=== PATIENT | female | born 1970 | race Caucasian/White ===

== ENCOUNTER 2018-05-30 05:20 | Inpatient (IN) ==
--- NOTE | 2018-05-29 23:15 | MH ---
cc: Gage Deal MD,Tamara Forrester MD DATE OF ADMISSION: 05/30/2018 ADMITTING DIAGNOSIS: Bilateral complex adnexal masses with pelvic pain. HISTORY OF PRESENT ILLNESS: The patient is a 47-year-old white female, para 2-0-1-2, who presented for evaluation on 05/03/2018 reporting some lower abdominal pain midline, described as going from the pubis about care home to the umbilicus for about 3 months. She has some low back pain and some urinary urgency. Her initial laboratory studies included normal CBC and urinalysis. A pelvic ultrasound was obtained on 05/04/2018, and showed uterus that measured 10.8 cm. The right ovary is a complex mass measuring 6.8 cm with a hypoechoic lesion measuring 3.7 cm. Left ovary was lobulated, 3.6 cm, mild free fluid. She had a CA-125 ordered on 05/05/2018 that returned at 210. She was advised to have an abdominal pelvic CT mass, which showed some nonspecific lesions liver lesions. The remainder of the abdomen was benign. Uterus is displaced anteriorly by complex masses. There was a 5.5 cm right adnexal cyst and a 3.9 cm left adnexal cyst, with some solid tissue posterior uterus along the posterior enlargement cystic lesions. The rectum was displaced. There is no evidence of lymphadenopathy. This was then followed by MRI of the abdomen and pelvis, which again confirmed the mass of the right side appeared to be a total of 11.6 cm with small quantity of free fluid. The left ovary was a mass about 4.5 cm. An MRI of the liver on 05/23/2018 was again nonspecific suggesting fatty liver changes. She is now admitted for surgical evaluation. 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 MEDICATIONS: Oral contraceptive pills, antihypertensives, and cholesterol lowering medications. ALLERGIES: PENICILLIN. TRANSFUSIONS: None. OBSTETRIC HISTORY: Two term sections. SOCIAL HISTORY: She is . She is employed. Alcohol, tobacco and drugs are none. FAMILY HISTORY: Noncontributory. PHYSICAL EXAMINATION: GENERAL: This is a well-nourished, well-developed white female. VITAL SIGNS: Stable. HEENT: Normal. CHEST: Clear. HEART: Regular rate. BREASTS: Symmetrical. ABDOMEN: Benign. Bowel sounds normal. EXTREMITIES: Normal. PELVIC: Vagina normal. Cervix normal. Both adnexa are cystic. DIAGNOSTIC DATA: Preop chest x-ray is negative. EKG is normal and her repeat CA-125 is 255. PLAN: She has had a preoperative bowel prep. Dr. Dasia Degroot has been consulted to assist in her surgery and her care in the event of a malignancy. She is aware she may require in addition to a ANA/BSO, omentectomy, appendectomy, lymph node biopsy, etc. The risks and benefits and complications explained and accepted. MD VINNY Owens/vincenzo , 09:56 PM , 10:06 PM
[2018-05-30] MEDS ORDERED: Chlorhexidine Gluconate 2% 1 Pack (2 Cloths) TOPICAL ONE (05:55)
[2018-05-30] MEDS ORDERED: Metoprolol Tartrate 25 MG Tablet PO ONE (05:55)
[2018-05-30] MEDS ORDERED: Sodium Chlor 0.9% Inj 500 ML IV.SIG SCH (06:00)
[2018-05-30] MEDS ORDERED: Clindamycin 900 mg/NS Premix 900 MG/50 ML PIGGYBACK IV.SIG ONE (06:00)
[2018-05-30] MEDS ORDERED: Phenylephrine/NS 1000 MCG/10ML Syringe IV.PUSH ONE (07:26)
[2018-05-30] MEDS ORDERED: Normosol-R pH 7.4 Inj 1,000 ML IV.CONT ONE (07:26)
[2018-05-30] MEDS ORDERED: Lidocaine PF 1% Inj 5 ML Syringe OTHER ONE (07:26)
[2018-05-30] MEDS ORDERED: Glycopyrrolate Inj 1 MG/5 ML Syringe IV.PUSH ONE (07:26)
[2018-05-30] MEDS ORDERED: Ketorolac Inj 30 MG/ML (IVP) Vial IM ONE (07:26)
[2018-05-30] MEDS ORDERED: Neostigmine Inj 5 MG/5 ML Syringe IV.PUSH ONE (07:26)
[2018-05-30] MEDS ORDERED: Ketorolac Inj 30 MG/ML (IVP) Vial IV.PUSH ONE (07:26)
[2018-05-30] MEDS ORDERED: Zolpidem Tartrate 5 MG Tablet PO PRN ×2 (10:06→12:05)
[2018-05-30] MEDS ORDERED: Naloxone Inj 0.4 MG/ML Vial IV.PUSH PRN (10:10)
[2018-05-30] MEDS ORDERED: KCL 20 mEq/D5W/NaCl 0.45% Inj 1,000 ML ONE (10:24)
[2018-05-30] MEDS ORDERED: Morphine Inj 30 MG/30 ML PCA.VIAL PCA ONE (10:24)
[2018-05-30] MEDS: KCL 20 mEq/D5W/NaCl 0.45% Inj 1,000 ML IV.CONT SCH ×2 (10:35→19:02)
[2018-05-30] MEDS ORDERED: *morphine SULFATE 4 MG/ML PERIprocedure ONLY ONE ×2 (10:43→11:22)
[2018-05-30] MEDS ORDERED: *Promethazine Inj 25 MG/ML Vial PERIprocedural use ONLY ONE (11:01)
--- NOTE | 2018-05-30 11:18 | MP ---
cc: Tamara Degroot MD, John A MD DATE OF OPERATION: 05/30/2018 DATE OF PROCEDURE: 05/30/2018 PROCEDURE PERFORMED: Exploratory laparotomy, total abdominal hysterectomy, bilateral salpingo-oophorectomy, resection of pelvic tumor, omentectomy. SURGEON: Tamara Degroot MD. CO-SURGEON: Gage Deal MD ANESTHESIA: General endotracheal anesthesia. ESTIMATED BLOOD LOSS: 700 mL IV FLUIDS: 3700 mL URINE OUTPUT: 100 mL HISTORY: This is a 47-year-old female who has been under the care of Dr. Gage Deal. Recently found to have bilateral complex adnexal masses and CA-125 elevated greater than 200. She was counseled regarding these findings and concerns, and was in favor of surgical evaluation and management. Dr. Deal had made me aware of this individual and her findings. I have had the opportunity to review her imaging and other pertinent history. She was scheduled for Dr. Deal this morning and upon exploration of the peritoneal cavity, he consulted and then requested that I join him to work with him in the surgical management based on the findings. FINDINGS: Bilateral adnexal masses; the right ovary was the largest. There was what appeared to be tumor with disruption of the capsule and tumor growing through the capsule. Some of this was sent for frozen section analysis. 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 The possibility of invasive disease could not yet be excluded. In addition to the large right ovarian mass, the left ovary was also enlarged to approximately 4 cm. There was some diffuse edema and adhesions suggestive of response to the tumor. The uterus was prominent, symmetrically enlarged, probably due to leiomyomas. There was approximately 7 cm - 8 cm mass of tumor in the posterior cul-de-sac. This was fairly loosely adherent to the adjacent tissues and it is probable that this tumor in the cul-de-sac represents tumor that had extruded through the capsule of the right ovary and deposited into the posterior cul-de-sac. There were no appreciably enlarged retroperitoneal pelvic or periaortic lymph nodes. There were no peritoneal implants beyond the pelvis. The small bowel was inspected from the ileocecal valve to the ligament of Treitz. There were no peritoneal implants in the bowel or mesentery; the appendix grossly appeared normal. The liver and diaphragm edges were smooth. The omentum grossly appeared normal. At the conclusion of the case, there was essentially no grossly visible or palpable tumor that remained as all tumor was confined to the pelvis and all affected tumor and organs were removed surgically. Given that there was already disease beyond the ovary to the peritoneum, additional peritoneal biopsies were not obtained from the normal peritoneal surfaces, but the infracolic omentum was removed for permanent histopathologic analysis. PROCEDURE: I was called to the operating room. She had already been explored via midline vertical incision under general endotracheal anesthesia by Dr. Gage Deal. A self-retaining abdominal wall retractor and protector had been placed; some lap pads had been placed to assist in the surgical exposure and the tissue from the right ovary was sent for frozen section analysis with findings as described above. I scrubbed in with Dr. Deal and we essentially completed all steps together acting as co-surgeons. He had completed removal of the right tube and ovary. Retroperitoneal dissection was carried out on the left side. The round ligament had been transected. Retroperitoneal dissection was carried out above the level of the pelvic brim. Dissection allowed visual and palpable inspection of the ureter on the left and the infundibulopelvic ligament was isolated. The intervening peritoneum was opened and the infundibulopelvic ligament was isolated, doubly clamped, cut, and suture ligated. Attachments between the left ovary and pelvic sidewall were taken down with cautery and sharp dissection until the ovary could be mobilized, attached only by the uteroovarian ligament. The posterior peritoneum was dissected off the lower uterine segment and cervix and the vesicouterine peritoneum was dissected off the lower uterine segment and cervix. The left uterine vessels were skeletonized. The left uterine vessels were clamped, cut, and suture ligated as were the cardinal, paracervical and uterosacral ligaments. Dr. Deal performed similar steps on the right side to secure the blood supply on the right side and to clamp, cut, and tie the ligamentous attachments along the right side of the uterus and cervix. Curved Lindo clamps were placed below the cervix at the lateral vaginal angles. Sharp dissection was used to separate the cervix from the vagina. [id number] interrupted 0-Vicryl sutures were used to secure the angles of the vaginal cuff and to reapproximate the cuff and render it hemostatic. Inspection of the posterior cul-de-sac showed a large volume of tumor in the cul-de-sac, which was removed with fairly straightforward blunt dissection from the cul-de-sac without much in the way of any adhesive attachments except for minimal filmy adhesions, given the impression that this may have been tumor that had erupted through the capsule of the right ovary and deposited below it into the cul-de-sac. The pelvis was thoroughly irrigated. Small bleeders rendered hemostatic with a 3-0 Vicryl suture bipolar cautery. All sites were hemostatic. The ureters were inspected. There was good peristalsis of ureters bilaterally. Pelvic lymph nodes were palpably inspected with no abnormal findings. Surgicel was placed across the vaginal cuff and the lateral vaginal angles. The lap pads were removed from the peritoneal cavity. The bowel and abdominal contents were inspected with normal findings as described above. Given that the omentum would be the most likely site of metastatic disease in the abdomen, decision was made in favor of omentectomy. Nonvascular attachments were taken down from the transverse colon starting near the hepatic flexure. Vascular attachments were isolated, clamped, cut, and suture ligated with 2-0 Vicryl suture. This dissection was continued along the transverse colon towards the splenic flexure in a similar fashion until the infracolic omentum had been removed. Site of transection of the omentum was inspected and noted to be hemostatic. Visual and palpable inspection revealed no remaining foreign objects in the peritoneal cavity other than the intentionally placed Surgicel. Cast counts were correct and it was felt that all reasonable surgical objectives had been completed. Attention was directed toward closing. The abdominal wall was closed with 0-looped PDS in a modified running Smead-Hoover fashion starting at the mid starting at the apices and meeting in the midpoint where the sutures were tied. Subcutaneous tissue was irrigated. Maria's fascia reapproximated with a 0-Vicryl suture and then 3-0 subcuticular closure, followed by Steri-Strips and dry sterile dressing. She was pending reversal of anesthesia when I left the operating room proceeded to the postanesthesia care unit. Dr. Deal was still present to finish up and get the wound dressed and to help ensure a safe transfer to the postanesthesia care unit and to speak with the family members who were waiting. MD TOMMY Dennis/franck Magana: 05/30/2018, 10:13 AM , 10:28 AM
[2018-05-30] MEDS ORDERED: Ketorolac Inj 30 MG/ML (IVP) Vial IV.PUSH SCH (11:45)
[2018-05-30 11:54] LABS: Hematocrit 39.4 % (35.0-46.0); Hemoglobin 13.2 gm/dL (11.6-15.3); Mean Corpuscular HGB Conc 33.4 % (32.0-36.0); Mean Corpuscular Hemoglobin 31.8 pg (27.0-34.0); Mean Corpuscular Volume 95.3 fL (80.0-100.0); Mean Platelet Volume 8.4 fL (7.0-11.0); Platelet Count 100 th/mm3 (150-450); Red Blood Count 4.13 mil/mm3 (4.00-5.30); Red Cell Distribution Width 13.1 % (11.6-17.2); White Blood Count 15.6 th/mm3 (4.0-11.0)
--- NOTE | 2018-05-30 13:25 | MP ---
cc: Gage Deal MD DATE OF OPERATION: 05/30/2018 PREOPERATIVE DIAGNOSIS: Bilateral complex ovarian masses. 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 PROCEDURES: Exploratory laparotomy, total abdominal hysterectomy/bilateral salpingo-oophorectomy, omentectomy. COSURGEON: Gage Deal MD; and Tamara Degroot MD. ANESTHESIA: General, ET. ESTIMATED BLOOD LOSS: 700 mL. FLUIDS: 3.7 crystalloid. SERVER SUPPORT TECHNICIAN: Kim OBJECTIVE FINDINGS: Following induction of adequate general endotracheal anesthesia, the patient was prepped and draped supine on the operating table in dorsal lithotomy position in usual sterile fashion with the bladder being drained via Mcneill catheterization. He has opened through a midline incision from just beneath the umbilicus to just above the symphysis pubis with a knife cutting down to the fascia. The fascia opened in the midline. Peritoneum opened sharply. There was a small quantity of clear ascitic fluid. Peritoneal washings were obtained for permanent study. The upper abdomen, omentum and liver all palpated normal. The elastic protractor was placed. The bowel was packed from the operative field and large Tamara clamps were placed on each uterine cornua for traction. There were some fine adhesions of the sigmoid to anterior fundus with finger dissection and the Bovie. The right ovary was enlarged about 7 cm with some excrescences through the capsule. This easily lifted out of the pelvis. The right round ligament was suture ligated and cut. The right ovarian pedicle was isolated, triply clamped with Mary's, cut, ligated x2 with 0 Vicryl and the right ovary sent for frozen section. The bladder flap was taken down on the right side. Uterine vessels skeletonized on the right side triply clamped with Mary's, cut, and ligated with [address] Degroot then scrubbed in and I had ligated the left round ligament. He did the dissection of the left ovarian pedicle, identified the ureter, doubly clamped, the uteroovarian pedicle. This was cut and tied x2 with 0 Vicryl, and he proceeded to take down the bladder flap from his side and skeletonize the vessels. The uterine artery was taken on the left side with a curved Mary, cut, and ligated x2 with 0 Vicryl and then using a [place] and Tejas clamps, straight type, the cardinal uterosacral was taken clamping, cutting, ligating with 0 Vicryl. 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 The corners of the vaginal cuff were taken with a curved Lindo clamp, cut, and ligated with 0 Vicryl and then the Bovie was used to amputate the cervix from the vaginal cuff. The remainder of the cuff was closed with the [address] Degroot then finger dissected off some tumor from the posterior cul-de-sac which came out clear. He then checked the right ureter which was intact and established hemostasis and placed Surgicel over all of the denuded surfaces. The laps were then removed. Counts were correct. Dr. Degroot performed omentectomy. Irrigation performed. No bleeding was evident. All laps and retractors were removed. Counts were correct and Dr. Degroot closed the anterior abdominal fascia and peritoneum with a Smead-Hoover closure #1 PDS. He then scrubbed out. I irrigated subcutaneous, closed subcutaneous with a running 3-0 Vicryl and the skin with a running subcuticular 3-0 Monocryl. Dermabond applied. All counts were correct, and the patient was awakened and taken to recovery room in good condition after receiving TAP block. MD VINNY Owens/kwesi , 10:17 AM , 10:28 AM EROS
[2018-05-30] MEDS: Morphine Inj 30 MG/30 ML PCA.VIAL PCA PRN ×2 (14:59→16:50)
[2018-05-30] MEDS: Pantoprazole Sodium 20 MG DR Tablet PO SCH (15:44)
[2018-05-30] MEDS: Ketorolac Inj 30 MG/ML (IVP) Vial IV.PUSH SCH ×2 (16:16→23:34)
[2018-05-30] MEDS ORDERED: fentaNYL Citrate Inj 100 MCG/2 ML Ampul ONE ×2 (19:39→19:41)
[2018-05-31] MEDS: KCL 20 mEq/D5W/NaCl 0.45% Inj 1,000 ML IV.CONT SCH ×3 (03:26→20:59)
[2018-05-31] MEDS: Ketorolac Inj 30 MG/ML (IVP) Vial IV.PUSH SCH ×3 (04:07→17:16)
[2018-05-31 05:57] LABS: Baso % (Auto) 0.2 % (0.0-2.0); Eos % (Auto) 0.3 % (0.0-4.0); Hemoglobin 11.7 gm/dL (11.6-15.3); Lymph # (Auto) 1.3 th/mm3 (1.0-4.8); Lymph % (Auto) 12.1 % (9.0-44.0); Mean Corpuscular HGB Conc 34.5 % (32.0-36.0); Mean Corpuscular Hemoglobin 31.9 pg (27.0-34.0); Mean Corpuscular Volume 92.6 fL (80.0-100.0); Mean Platelet Volume 8.2 fL (7.0-11.0); Mono # (Auto) 0.7 th/mm3 (0.0-0.9); Mono % (Auto) 6.9 % (0.0-8.0); Neut # (Auto) 8.6 th/mm3 (1.8-7.7); Neut % (Auto) 80.5 % (16.0-70.0); Platelet Count 224 th/mm3 (150-450); Red Blood Count 3.67 mil/mm3 (4.00-5.30); White Blood Count 10.7 th/mm3 (4.0-11.0)
[2018-05-31 06:34] LABS: Anion Gap 7 meq/L (5-15); Blood Urea Nitrogen 5 mg/dL (7-18); Calcium 7.1 mg/dL (8.5-10.1); Carbon Dioxide 25.4 meq/L (21.0-32.0); Chloride 103 meq/L (98-107); Glomerular Filtration Rate Greater Than 89 mL/min (>89); Glucose,Random 132 mg/dL (74-106); Potassium 3.7 meq/L (3.5-5.1); Sodium 135 meq/L (136-145)
[2018-05-31 06:51] LABS: Calcium-Albumin Corrected 8.2 mg/dL (8.5-10.1); Total Protein 5.1 g/dL (6.4-8.2)
[2018-05-31] MEDS: Pantoprazole Sodium 20 MG DR Tablet PO SCH (08:05)
--- NOTE | 2018-05-31 09:14 | MB ---
cc: Tamara Degroot MD,Gage Day MD DATE: 05/31/2018 HISTORY OF PRESENT ILLNESS: I met with Lulú Cole, introduced myself, made her aware that I worked with Dr. Gage Deal yesterday on her surgery at his request. She was aware of that possibility preoperatively. I explained the findings and the steps taken at the time of surgery as well as the preliminary pathology. Frozen section analysis from the right ovary showed it to be at least a serous borderline tumor. The possibility of invasive ovarian cancer remains and will not be clarified until final histopathologic analysis is completed. I explained the difference both histologically and clinically between a serous borderline tumor (ovarian tumor of borderline malignant potential) versus invasive ovarian cancer. I explained that one is treated with surgery and the other require surgery and often chemotherapy and both require periodic close followup. I explained that all grossly visible or palpable disease was removed as it was confined to the pelvis and the ovaries, uterus, cervix, and cul-de-sac tumor were resected. Additional specimens were sent for microscopic analysis. At some point after hospital discharge, I would like to see her back in our office to ensure we have the opportunity to have a more detailed discussion regarding her final pathology and to make treatment and/or recommendation followups based on those findings. With respect to surgery, she is doing well, reports discomfort and being tired consistent with surgery yesterday; but otherwise doing reasonably well. Ins and outs 5950/1500. Labs show an H and H this morning is 11.7 and 34, platelets 224, white count 10.7. Electrolytes: Potassium 3.7, BUN and creatinine 5 and 0.6. PHYSICAL EXAMINATION: VITAL SIGNS: She is afebrile, pulse 77-96, respirations 16-18, blood pressure 81-98/43-60, O2 saturations greater than or equal to 94% while awake. GENERAL: Alert and oriented x 3. LUNGS: Clear with basilar rales. CARDIOVASCULAR: Regular rate and rhythm. ABDOMEN: Soft. Incision dressing clean and dry. GYNECOLOGIC: No reported bleeding. EXTREMITIES: Nontender. No palpable cords. ASSESSMENT: 1. Postoperative day number 1, status post exploratory laparotomy, total abdominal hysterectomy, bilateral salpingo-oophorectomy, resection of cul-de-sac tumor, omentectomy, intraperitoneal washings for cytology. 2. 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 3. Discussion, questions were asked and answered. She expressed good understanding. PLAN: 1. Continue ongoing postoperative management under the direction of Dr. Gage Deal. 2. After discharge, I would ask that she follow up with me in approximately 2 weeks for reassessment and more extensive discussion of final pathology. MD TOMMY Dennis/rosio , 08:42 AM , 08:51 AM
[2018-05-31] MEDS: Morphine Inj 30 MG/30 ML PCA.VIAL PCA PRN (09:43)
[2018-05-31] MEDS: Aluminum/Magnesium/Simethacone Susp 30 ML UDC PO PRN (20:58)
[2018-06-01] MEDS: KCL 20 mEq/D5W/NaCl 0.45% Inj 1,000 ML IV.CONT SCH (03:50)
[2018-06-01 03:55] VITALS: RESP 18
[2018-06-01] MEDS: Morphine Inj 30 MG/30 ML PCA.VIAL PCA PRN (04:18)
[2018-06-01] MEDS: Pantoprazole Sodium 20 MG DR Tablet PO SCH (09:52)
[2018-06-01] MEDS: Aluminum/Magnesium/Simethacone Susp 30 ML UDC PO PRN (18:02)
[2018-06-02 05:27] VITALS: BP 114/67; PULSE 65; TEMP 98.1; O2SAT 99
[2018-06-02] MEDS: Pantoprazole Sodium 20 MG DR Tablet PO SCH (08:28)
[2018-06-02] MEDS: Aluminum/Magnesium/Simethacone Susp 30 ML UDC PO PRN (09:27)
--- NOTE | 2018-06-02 10:51 | P.PNOB ---
Subjective Post op day: 3 Interval history: doing well. Came off IV pain meds this AM, She had regular diet last night and tolerated. She is ambulating and tolerating pain, /No flatus Objective Vital Signs/I&O: Vital Signs 06/01/18 16:00 06/01/18 20:00 06/01/18 23:34 Temperature 98.6 F 98.1 F 98.2 F Pulse Rate 95 H 60 74 Respiratory Rate 18 18 18 Blood Pressure 116/54 L 116/60 115/63 Pulse Oximetry 97 93 L 94 L 06/02/18 04:00 Temperature 98.1 F Pulse Rate 65 Respiratory Rate 18 Blood Pressure 114/67 Pulse Oximetry 99 Intake & Output 06/01/18 06/02/18 06/02/18 18:59 06:59 18:59 Intake Total 100 / 100 0 / 0 Output Total 350 / 350 Balance -250 / -250 0 / 0 Intake: IV 100 / 100 0 / 0 Ofirmev Inj 1,000 mg In 100 ml 100 / 100 0 / 0 @ 400 mls/hr IV.SIG Q6H [facility] Rx# :[id number] Output: Urine 350 / 350 Result Diagrams: 05/31/18 05:00 05/31/18 05:00 Objective Remarks: GENERAL: Well-nourished, well-developed patient. CARDIOVASCULAR: Regular rate and rhythm without murmurs, gallops, or rubs. RESPIRATORY: Breath sounds equal bilaterally. No accessory muscle use. ABDOMEN/GI: Abdomen soft, non-tender, bowel sounds present. Incision: Clean, dry and intact. Fundus: Firm, non-tender at umbilicus. GENITOURINARY: Light to moderate bleeding. EXTREMITIES: No cyanosis or edema, non-tender, without signs of DVT. Medications and IVs: Active Medications Al Hydrox/Mg Hydrox/Simethicone (Mag-Al Plus Susp Liq) 30 ml PO Q2H PRN PRN Reason: HEARTBURN Last Admin: 06/02/18 09:27 Dose: 30 ml Diphenhydramine HCl (Benadryl) 25 mg PO Q6H PRN PRN Reason: ITCHING Sodium Chloride (Ns Inj) 500 mls @ 30 mls/hr IV.SIG .Q10H [facility] Last Admin: 05/30/18 06:48 Dose: Not Given Potassium Chloride/Dextrose/Sod Cl (D5w/1/2ns + Kcl 20 Meq Inj) 1,000 mls @ 125 mls/hr IV.CONT .Q8H [facility] Last Admin: 06/01/18 03:50 Dose: 125 mls/hr Ondansetron HCl 8 mg/ Dextrose 54 mls @ 108 mls/hr IV.SIG Q8H PRN PRN Reason: NAUSEA OR VOMITING Naloxone HCl (Narcan Inj) 0.4 mg IV.PUSH PRN PRN PRN Reason: Resp rate < 10 Ondansetron HCl (Zofran Inj) 8 mg IV.PUSH Q8H PRN PRN Reason: NAUSEA Last Admin: 05/31/18 10:21 Dose: 8 mg Oxycodone/Acetaminophen (Percocet 5/325 Mg) 1 tab PO Q4H PRN PRN Reason: ABDOMINAL PAIN Last Admin: 06/02/18 09:42 Dose: 1 tab Oxycodone/Acetaminophen (Percocet 5/325 Mg) 2 tab PO Q4H PRN PRN Reason: PAIN SCALE 6-10 Pantoprazole Sodium (Protonix) 20 mg PO DAILY [facility] Last Admin: 06/02/18 08:28 Dose: Not Given Promethazine HCl (Phenergan Inj) 25 mg IM Q6H PRN PRN Reason: NAUSEA OR VOMITING Sodium Chloride (Ns Flush) 2 ml IV.FLUSH BID [facility] Last Admin: 06/02/18 08:09 Dose: Not Given Sodium Chloride (Ns Flush) 2 ml IV.FLUSH PRN PRN PRN Reason: FLUSH AFTER USING IV ACCESS Zolpidem Tartrate (Ambien) 5 mg PO HS PRN PRN Reason: INSOMNIA Assessment and Plan - Diagnosis (1) Ovarian cyst Code(s): N83.209 - Unspecified ovarian cyst, unspecified side Status: Acute - Plan if patient tolerates po ok to dc home today
--- NOTE | 2018-06-02 14:55 | P.DS ---
Date of admission: 05/30/18 05:20 Primary care physician: Demarcus Bauman MD Brief History from admission: 47 yo with ovarian cysts for ELAP and BSO by reina and Dr Gage Deal DS: Diagnosis - Discharge Diagnosis (1) Ovarian cyst Status: Acute DS: Medications - Discharge Medications Prescriptions: oxycodone-acetaminophen 1 tab PO Q4H PRN #30 tab PRN Reason: Abdominal Pain DS: Summary Hospital Course: Patient had ANA BSO and omentectomy by Say/ Reina. She did well 3 days post op tolerating regular diet and ambulating. She had slight incontinence but will discuss with Dr deal outpatient - Time Spent with Patient Total time spent providing and/or coordinating discharge services: Greater than 30 minutes - Quality: VTE Deep Vein Thrombosis/Pulmonary Embolism Present on Admission: No Exam Vital signs: Vital Signs 06/01/18 16:00 06/01/18 20:00 06/01/18 23:34 Temperature 98.6 F 98.1 F 98.2 F Pulse Rate 95 H 60 74 Respiratory Rate 18 18 18 Blood Pressure 116/54 L 116/60 115/63 Pulse Oximetry 97 93 L 94 L 06/02/18 04:00 Temperature 98.1 F Pulse Rate 65 Respiratory Rate 18 Blood Pressure 114/67 Pulse Oximetry 99 Intake & Output 06/01/18 06/02/18 06/02/18 18:59 06:59 18:59 Intake Total 100 / 100 0 / 0 Output Total 350 / 350 Balance -250 / -250 0 / 0 Intake: IV 100 / 100 0 / 0 Ofirmev Inj 1,000 mg In 100 ml 100 / 100 0 / 0 @ 400 mls/hr IV.SIG Q6H [facility] Rx# :[id number] Output: Urine 350 / 350 - Constitutional no acute distress - Routine HEENT Exam Head: Present: normocephalic - Routine Neck Exam Present: full ROM - Routine Respiratory Exam Present: CTA bilaterally - Routine Cardiovascular Exam Present: RRR - Routine Abdominal Exam Present: soft, normoactive bowel sounds, surgical scars (healing well vertical incision) - Routine Extremities Exam Present: full ROM - Routine Skin Exam Present: intact - Routine Neurological Exam Present: alert, oriented X3 Results Procedures completed during hospitalization: ANA BSO omentectomy Pending studies at discharge: Pending at discharge 05/30/18 Cytology [PTH] Routine Discharge Plan - Discharge Disposition Patient Disposition: 01 Discharge Home - Discharge Condition Condition: Good - Discharge Order Discharge Orders: Discharge Order (Routine); Ordered 06/02/18 Ordered By: Gage Finn - Physicians Team Primary Care Provider: Demarcus Bauman Attending Provider: Gage Deal - Rxs /Orders / Referrals /Forms Prescriptions: New oxycodone-acetaminophen 5-325 mg Tablet 1 tab PO Q4H PRN (Reason: Abdominal Pain) Qty: 30 RF: 0 Continue omeprazole 20 mg Capsule,Delayed Release(Dr/Ec) 20 mg PO DAILY Discontinued norgestimate-ethinyl estradiol [TriNessa (28)] 0.18/0.215/0.25 mg-35 mcg (28 ) Tablet 1 tab PO DAILY Referrals: Demarcus Bauman MD [Primary Care Provider] - See Instructions Gage Deal MD [Physician] - See Instructions Tamara Degroot MD [Physician] - See Instructions - Discharge Instructions Patient Printed Instructions: Oxycodone/Acetaminophen (By mouth), Hysterectomy (DC) Additional Instructions: Prescription given for Percocet, may take [id number] Motrin - Post Discharge Care Plan Care Plan Goals: Your Health Problems: Goals to Promote Your Health: * To prevent worsening of your condition * To maintain your health at the optimal level Directions to Meet Your Goals: * Take your medications as prescribed * Follow your dietary instruction * Follow activity as directed * Keep your appointments as scheduled * Take your immunizations and boosters as scheduled * If your symptoms worsen call your PCP * If no PCP go to Urgent Care or Emergency Room Smoking is dangerous to your health. Avoid second hand smoke. You may reach the 24-hour crisis hotline for domestic abuse at .
== END 2018-06-02 15:07 | disposition home or self-care (01) | DRG 743 ==
LOC: HSDI 05:20 → H1EA 11:54
PROVIDERS: ADMIT Obstetrics & Gynecology; ATTEND Obstetrics & Gynecology
CPT/HCPCS: 36415; 71020; 71046; 80048; 80051; 81001; 84155; 84702; 85025; 85027; 86304; 86850; 86900; 86901; 88112; 88305; 88307; 88331; 93005; 94150; J0131; J1885; J2250; J2270; J2370; J2405; J2550; J2704; J2710; J2795; J3010; J3480; J7120

== ENCOUNTER 2018-06-22 14:52 | Inpatient (IN) ==
[2018-06-22 17:20] LABS: Baso # (Auto) 0.1 th/mm3 (0.0-0.2); Baso % (Auto) 0.6 % (0.0-2.0); Eos # (Auto) 0.1 th/mm3 (0.0-0.4); Eos % (Auto) 1.5 % (0.0-4.0); Hematocrit 37.5 % (35.0-46.0); Lymph # (Auto) 1.8 th/mm3 (1.0-4.8); Lymph % (Auto) 20.3 % (9.0-44.0); Mean Corpuscular HGB Conc 34.6 % (32.0-36.0); Mean Corpuscular Hemoglobin 31.2 pg (27.0-34.0); Mean Corpuscular Volume 90.1 fL (80.0-100.0); Mean Platelet Volume 7.8 fL (7.0-11.0); Mono # (Auto) 0.6 th/mm3 (0.0-0.9); Mono % (Auto) 7.1 % (0.0-8.0); Neut # (Auto) 6.3 th/mm3 (1.8-7.7); Neut % (Auto) 70.5 % (16.0-70.0); Platelet Count 351 th/mm3 (150-450); Red Blood Count 4.17 mil/mm3 (4.00-5.30); Red Cell Distribution Width 12.9 % (11.6-17.2)
[2018-06-22 17:41] LABS: Calcium 9.2 mg/dL (8.5-10.1); Carbon Dioxide 27.3 meq/L (21.0-32.0); Potassium 4.1 meq/L (3.5-5.1)
[2018-06-22 20:04] LABS: Bilirubin,Urine Negative (Negative); Clarity,Urine Clear (Clear); Color,Urine Yellow (Yellw/Straw); Glucose,Urine (UA) Negative (Negative); Leukocyte Esterase,Urine Negative (Negative); Mucus,Urine Few /lpf (Occasional); Nitrite,Urine Negative (Negative); Specific Gravity,Urine 1.017 (1.002-1.035); Squamous Epithelial Cell,Urine 1 /hpf (0-5)
[2018-06-22] MEDS ORDERED: Clindamycin 900 mg/NS Premix 900 MG/50 ML PIGGYBACK IV.SIG ONE (21:00)
--- NOTE | 2018-06-22 22:33 | MH ---
cc: Gage Deal MD DATE OF ADMISSION: 06/22/2018 ADMITTING DIAGNOSIS: Wound infection. 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 Postop did well, discharged home with third postoperative day. She was seen in the office on 06/14/2018 doing well. She called today with complaints of watery yellowish drainage from the lower part of the wound since last evening. She came into the office for evaluation today and had a serous, slightly purulent discharge, which was cultured with surrounding erythema. The wound itself is intact with no separation. She is now admitted for medical therapy and possible wound opening and debridement. PAST SURGICAL HISTORY: 1992 and 2002, LEEP procedure 2009, breast biopsy, left side in 2011, benign. The above-mentioned surgery. FINDINGS: Both sides of the wound with a seropurulent discharge from the distal end of the midline incision just above the pubis. ASSESSMENT: As above, the wound was cultured. She is now admitted for antibiotic therapy and pending the response to antibiotics, may need opening of the wound, debridement, packing, and closure by secondary intention. The patient understands and agrees to proceed. MD VINNY Owens/vincenzo/ , 09:18 PM , 09:24 PM [facility]
[2018-06-22] MEDS ORDERED: Gentamicin Consult Pharmacy 1 EACH OTHER SCH (23:00)
[2018-06-23] MEDS ORDERED: SODIUM CHLOR 0.9% IV.SIG ONE ×2
[2018-06-23] MEDS ORDERED: GENTAMICIN IV.SIG ONE ×2
[2018-06-23] MEDS: Clindamycin 600 mg/NS Premix 600 MG/50 ML PIGGYBACK IV.SIG SCH ×3 (06:07→22:00)
[2018-06-23] MEDS: Gentamicin/NS 80 mg Premix 100 ML IV.SIG SCH (15:22)
[2018-06-23] MEDS ORDERED: Vancomycin Consult Pharmacy OTHER PRN (15:27)
[2018-06-23] MEDS ORDERED: Vancomycin Inj 1,000 MG in Sodium Chlor 0.9% Inj 250 ML IV.SIG SCH (15:28)
--- NOTE | 2018-06-23 15:33 | P.CONGS ---
[facility] Gen Surgery Consult Note Consult date: 06/23/18 Narrative: To me with ANA/BSO/omentectomy by Dr. Gage Deal and Dr. Mcdonald my office on . She had been doing well postoperatively and followed up with Dr. Deal on 1128 to have sutures removed. A couple of days after that she noticed that she was developing redness of the abdomen. The abdomen has felt tense since that time especially over the last few days. 2 nights ago she had evacuation of fluid from her anterior abdominal wall. She presented to Dr. Deal's office yesterday and was admitted to the hospital for postoperative wound infection. She has been placed on gentamicin and clindamycin. Wound culture so far has shown gram-negative rods. White blood count was normal in the emergency department. She relates pretty significant tenderness over the lower abdomen especially on the right side. Review of Systems All other systems reviewed negative except as stated in [facility] - History History Provided By: Patient - Medical History Medical History: Medical History (Last Reviewed 05/30/18 @ 05:51 by Isela Mejias) Barretts esophagus GERD (gastroesophageal reflux disease) H/O endoscopy Painful menstrual flow Wears glasses - Surgical History Surgical History: Surgical History (Last Reviewed 05/30/18 @ 05:51 by Isela Mejias) H/O LEEP H/O adenoidectomy H/O section History of breast biopsy Status post myringotomy with tube placement of both ears - Tobacco History Second Hand Smoke Exposure: Yes Smoking Status: Never smoker - Alcohol History How Often Do You Have a Drink Containing Alcohol: Never - Substance Use History Substance History: No History of Abuse Medications and Allergies Active Medications: Active Medications Lactated Ringer's (Lr 1000 Ml Inj) 1,000 mls @ 125 mls/hr IV.SIG .Q8H [facility] Last Admin: 06/23/18 13:27 Dose: 125 mls/hr Clindamycin/Sodium Chloride (Cleocin 600 Mg/Ns Premix) 600 mg in 50 mls @ 100 mls/hr IV.SIG Q8H [facility] Last Infusion: 06/23/18 14:02 Dose: Infused Pharmacy Profile Note (Gentamicin Consult Pharmacy) 0 mls @ 0 mls/hr OTHER UNSCH [facility] Gentamicin Sulfate/Sodium Chloride (Gentamicin/Ns 80 Mg Premix) 100 mls @ 200 mls/hr IV.SIG Q8H [facility] Last Admin: 06/23/18 15:22 Dose: 200 mls/hr Vancomycin HCl 1,000 mg/ (Sodium Chloride) 250 mls @ 250 mls/hr IV.SIG Q12H [facility] Stop: 06/24/18 04:27 Miscellaneous Information ([facility] Ordered Lab Info) 1 each OTHER ONCE ONE Stop: 06/25/18 07:01 Ondansetron HCl (Zofran Inj) 4 mg IV.PUSH Q6H PRN PRN Reason: NAUSEA OR VOMITING Oxycodone/Acetaminophen (Percocet 5/325 Mg) 1 tab PO Q4H PRN PRN Reason: PAIN SCALE 1-5 Last Admin: 06/23/18 07:24 Dose: 1 tab Oxycodone/Acetaminophen (Percocet 10/325 Mg) 1 tab PO Q4H PRN PRN Reason: PAIN SCALE 6-10 Pharmacy Profile Note (Vancomycin Consult Pharmacy) 1 each OTHER UNSCH PRN PRN Reason: Pharmacy to dose Zolpidem Tartrate (Ambien) 10 mg PO HS PRN PRN Reason: SLEEP Last Admin: 06/22/18 23:37 Dose: 10 mg Allergies Allergy/AdvReac Type Severity Reaction Status Date / Time adhesive tape Allergy Severe Blister Verified 05/30/18 05:52 tenorio Allergy Severe HIVES,ESOPHAGEAL Verified 05/30/18 05:52 SPASM penicillin G Allergy Severe UNKNOWN Verified 05/30/18 05:52 prednisone Allergy Severe ABD PAIN Verified 05/30/18 05:52 Home Medications Medication Instructions Recorded Confirmed Type omeprazole 20 mg PO DAILY 05/28/18 05/30/18 History Exam Vital signs: Vital Signs 06/22/18 20:00 06/23/18 00:00 06/23/18 00:14 Temperature 98.5 F 98.4 F Pulse Rate 83 78 Respiratory Rate 18 16 18 Blood Pressure 118/64 120/69 Pulse Oximetry 97 97 06/23/18 04:00 06/23/18 08:00 06/23/18 08:28 Temperature 98.5 F 97.7 F Pulse Rate 80 72 Respiratory Rate 17 20 16 Blood Pressure 119/66 114/57 L Pulse Oximetry 97 96 06/23/18 12:00 Temperature 98.1 F Pulse Rate 76 Respiratory Rate 20 Blood Pressure 108/55 L Pulse Oximetry 97 Intake & Output 06/22/18 06/23/1818 18:59 06:59 18:59 Intake Total 1487 / 1487 1050 / 1050 Balance 1487 / 1487 1050 / 1050 Weight 94.3 kg Intake: IV 1266 / 1266 1050 / 1050 Cleocin 600 mg/NS Premix 600 mg 50 / 50 50 / 50 In 50 ml @ 100 mls/hr IV.SIG Q8H [facility] Rx#:[id number] Cleocin Inj 900 MG In NS Inj 106 / 106 100 ML @ 100 mls/hr IV.SIG ONCE ONE Rx#:[id number] Gentamicin Inj 400 MG In NS Inj 110 / 110 100 ML @ 100 mls/hr IV.SIG ONCE ONE Rx#:[id number] LR 1000 mL Inj 1,000 ML @ 125 1000 / 1000 1000 / 1000 mls/hr IV.SIG .Q8H [facility] Rx#: [id number] Oral 221 / 221 Other: Weight On Admission 94.2 kg Narrative: GENERAL: Awake and alert. Appears in some pain. Cooperative. Obese. HEAD: Normocephalic. Atraumatic. EYES: Pupils equal round and reactive to light bilaterally. No scleral icterus. ENT: Moist oral mucosa. NECK: Trachea midline. CHEST: Nonlabored breathing. No respiratory distress. CARDIOVASCULAR: Regular rate and rhythm. ABDOMEN: Obese. Lower abdominal incision well-healed. There is an open area 1- 2 cm in the lower portion. The area was probed and there is significant tunneling inferiorly superiorly and posteriorly. There is drainage of some cloudy fluid but no garcia pus. Erythema over the entire lower abdomen. EXTREMITIES: No cyanosis or edema. SKIN: Warm, dry, nonjaundiced. Erythema over the lower abdomen. Results - Labs 06/22/18 17:10 06/22/18 17:10 Laboratory Results - last 24 hr 06/22/18 06/22/18 06/22/18 17:10 17:10 17:38 WBC 9.0 RBC 4.17 Hgb 13.0 Hct 37.5 MCV 90.1 MCH 31.2 MCHC 34.6 RDW 12.9 Plt Count 351 D MPV 7.8 Neut % (Auto) 70.5 H Lymph % (Auto) 20.3 [place] % (Auto) 7.1 Eos % (Auto) 1.5 Baso % (Auto) 0.6 Neut # (Auto) 6.3 Lymph # (Auto) 1.8 [place] # (Auto) 0.6 Eos # (Auto) 0.1 Baso # (Auto) 0.1 WBC Differential . Differential Comment Auto diff final Sodium 137 Potassium 4.1 Chloride 106 Carbon Dioxide 27.3 Anion Gap 4 L BUN 11 Creatinine 0.74 Estimated GFR 84 L Random Glucose 97 Calcium 9.2 Urine Color Yellow Urine Clarity Clear Urine pH 6.0 Ur Specific [place] 1.017 Urine Protein Negative Urine Glucose (UA) Negative Urine Ketones Negative Urine Occult Blood Negative Urine Nitrate Negative Urine Bilirubin Negative Urine Urobilinogen Less than 2 Ur Leukocyte Esterase Negative Urine WBC 2 Ur Squamous Epith Cells 1 Urine Mucus Few H Ur Microscopic Review Not Reportable Assessment and Plan - Assessment (1) Postoperative wound infection Code(s): T81.49XA - Infection following a procedure, other surgical site, initial encounter Status: Acute - Plan 47-year-old female with postoperative wound infection after laparotomy with ANA/ BSO and omentectomy on 05/30/2018. The culture has grown gram-negative rods but due to the extent of the cellulitis I will add vancomycin. I would recommend 1 more day of evaluation since she is only started on antibiotics late last night. If no improvement tomorrow she will likely benefit from proceeding to the operating room to open the incision and perform washout and likely VAC placement. Case discussed in detail with Dr. Deal.
[2018-06-23] MEDS ORDERED: Vancomycin Inj 2,000 MG in Sodium Chlor 0.9% Inj 500 ML IV.SIG ONE (17:00)
[2018-06-24] MEDS: Gentamicin/NS 80 mg Premix 100 ML IV.SIG SCH ×3 (00:13→17:13)
[2018-06-24] MEDS ORDERED: Vancomycin Inj 1,500 MG in Sodium Chlor 0.9% Inj 500 ML IV.SIG SCH (05:00)
[2018-06-24] MEDS: Clindamycin 600 mg/NS Premix 600 MG/50 ML PIGGYBACK IV.SIG SCH ×3 (05:02→22:29)
--- NOTE | 2018-06-24 15:09 | P.PNGS ---
Subjective Interval history: Yesterday she had a skin reaction to the vancomycin which had to be stopped and benadryl administered. No complaints today. Physical Exam Vital signs: Vital Signs 06/23/18 16:00 06/23/18 18:39 06/23/18 20:00 Temperature 98.5 F 98.2 F Pulse Rate 70 77 Respiratory Rate 20 16 18 Blood Pressure 109/56 L 102/50 L Pulse Oximetry 97 96 06/24/18 00:00 06/24/18 04:00 06/24/18 08:00 Temperature 98.0 F 97.7 F 98.7 F Pulse Rate 75 79 78 Respiratory Rate 18 18 20 Blood Pressure 102/54 L 108/53 L 109/57 L Pulse Oximetry 95 96 95 06/24/18 12:00 Temperature 98.7 F Pulse Rate 74 Respiratory Rate 20 Blood Pressure 129/59 L Pulse Oximetry 95 Intake & Output 06/23/18 06/24/18 06/24/18 18:59 06:59 18:59 Intake Total 1150 / 1150 604 / 604 1150 / 1150 Balance 1150 / 1150 604 / 604 1150 / 1150 Intake: IV 1150 / 1150 604 / 604 1150 / 1150 Cleocin 600 mg/NS Premix 600 mg 50 / 50 100 / 100 50 / 50 In 50 ml @ 100 mls/hr IV.SIG Q8H [facility] Rx#:[id number] Gentamicin/NS 80 mg Premix 100 100 / 100 100 / 100 100 / 100 ML @ 200 mls/hr IV.SIG Q8H [facility] Rx#:[id number] LR 1000 mL Inj 1,000 ML @ 125 1000 / 1000 404 / 404 1000 / 1000 mls/hr IV.SIG .Q8H [facility] Rx#: [id number] Other: # Voids 3 Narrative: NAD ABD: erythema somewhat improved; still induration and erythema more on right lower abdomen; serous fluid and small amt exudate from 1 cm hole in lower midline Results - Labs 06/22/18 17:10 06/22/18 17:10 Laboratory Results - last 24 hr 06/23/18 17:05 Random Gentamicin 4.5 Assessment and Plan - Assessment (1) Postoperative wound infection Code(s): T81.49XA - Infection following a procedure, other surgical site, initial encounter Status: Acute - Plan 47-year-old female with postoperative wound infection after laparotomy with ANA/ BSO and omentectomy on 05/30/2018. The culture has grown gram-negative rods. Vanco not tolerated- will add zyvox to cover possible gram pos until final culture comes back. D/w Dr. Deal. Recommend when possible go ahead and proceed with opening up the incision with washout and wet to dry dressings vs vac placement. Will likely help this resolve more quickly. Discussed with patient and she is in agreement.
[2018-06-24] MEDS: Linezolid 600 MG Tablet PO SCH (21:44)
[2018-06-25] MEDS: Gentamicin/NS 80 mg Premix 100 ML IV.SIG SCH ×4 (00:40→23:54)
[2018-06-25] MEDS ORDERED: Pharmacy Ordered Lab Info OTHER ONE ×4 (04:45→07:30)
[2018-06-25] MEDS: Clindamycin 600 mg/NS Premix 600 MG/50 ML PIGGYBACK IV.SIG SCH ×3 (05:08→21:45)
[2018-06-25 07:06] LABS: Calcium 9.2 mg/dL (8.5-10.1); Potassium 3.7 meq/L (3.5-5.1)
[2018-06-25 07:08] LABS: Gentamicin,Trough 1.6 mcg/mL (0.0-2.0)
[2018-06-25] MEDS ORDERED: Chlorhexidine Gluconate 2% 1 Pack (2 Cloths) TOPICAL ONE (07:28)
[2018-06-25] MEDS ORDERED: Metoprolol Tartrate 25 MG Tablet PO ONE (07:28)
[2018-06-25] MEDS ORDERED: Bupivacaine/Epinephrine PF Inj 0.5% 30 ML Vial ONE (07:44)
[2018-06-25] MEDS ORDERED: Sodium Chlor 0.9% Inj 500 ML IV.SIG ONE (08:00)
[2018-06-25] MEDS ORDERED: Zolpidem Tartrate 5 MG Tablet PO PRN (08:08)
[2018-06-25] MEDS ORDERED: Ketorolac Inj 30 MG/ML (IVP) Vial IV.PUSH PRN (08:08)
--- NOTE | 2018-06-25 08:09 | P.OP ---
- Preoperative Diagnosis (1) Postoperative wound infection - Postoperative Diagnosis (1) Postoperative wound infection Date of procedure: 06/25/18 Procedure: Incision and drainage of infected postoperative wound with placement of wound vac Anesthesia: GETA Surgeon: MD Gage Osei MD Estimated blood loss (mL): 10 Pathology: other (fluid for micro) Operation and Findings: Operative findings: Infected postoperative wound cavity. Fascia intact. Procedure in detail: The patient was taken to the operating room placed in supine position. General anesthesia was induced. The abdomen was prepped and draped in usual sterile fashion and a surgical timeout was performed to verify correct patient procedure and site. The patient had a 1-2 cm draining site in the inferior midline incision. Inferiorly and superiorly to this site the incision was opened for about 10 cm. The underlying cavity had mildly cloudy fluid removed. The cavity was extending superiorly almost to the umbilicus and the incision was enlarged slightly superiorly. Underlying fascia was very gently probed and was intact. There was no purulent fluid seen to be coming from the intra-abdominal cavity. At this point, the cavity was copiously irrigated with normal saline. Hemostasis was achieved. A medium wound VAC sponge was cut to size and placed in the cavity. Drape was placed and there was good seal on a wound VAC which was placed to -125 mmHg of suction. The patient tolerated the procedure well and was extubated taken to PACU in stable condition.
[2018-06-25] MEDS ORDERED: *morphine SULFATE 4 MG/ML PERIprocedure ONLY ONE ×2 (08:21→08:57)
[2018-06-25] MEDS ORDERED: fentaNYL Citrate Inj 100 MCG/2 ML Ampul ONE (08:23)
[2018-06-25] MEDS ORDERED: *Meperidine Inj 25 MG/ML Vial PERIprocedural Use ONLY ONE (08:35)
[2018-06-25] MEDS: Pantoprazole Sodium 20 MG DR Tablet PO SCH (10:27)
[2018-06-25] MEDS: Docusate Sodium 100 MG Capsule PO SCH ×2 (10:27→21:45)
[2018-06-25] MEDS: Linezolid 600 MG Tablet PO SCH ×2 (10:27→21:45)
--- NOTE | 2018-06-25 11:14 | P.DCO ---
- Diagnosis (1) Postoperative wound infection Status: Acute - Home Health Nursing Order: Medical education, Signs/symptoms of disease process, Wound care and dressing changes Instructions: Wound vac changes to lower midline abdominal wound MWF - Case Management Consult Case Management Consult-Home Health: Yes - Certification I have seen patient Lulú Galvan on 06/25/18. My clinical findings support the need for the requested home health care services because: Limited mobility due to disease progression, Deconditioned with increased weakness I certify that my clinical findings support that this patient is homebound because: Post-op weakness
[2018-06-25] MEDS: oxyCODONE/Acetaminophen 10/325 Tablet PO PRN ×3 (13:56→22:21)
[2018-06-26] MEDS: oxyCODONE/Acetaminophen 10/325 Tablet PO PRN ×5 (02:35→20:24)
[2018-06-26] MEDS: Clindamycin 600 mg/NS Premix 600 MG/50 ML PIGGYBACK IV.SIG SCH ×2 (05:19→14:38)
[2018-06-26] MEDS: Gentamicin/NS 80 mg Premix 100 ML IV.SIG SCH ×2 (07:31→15:56)
[2018-06-26 07:56] LABS: Baso % (Auto) 0.3 % (0.0-2.0); Eos # (Auto) 0.2 th/mm3 (0.0-0.4); Eos % (Auto) 2.4 % (0.0-4.0); Hematocrit 33.9 % (35.0-46.0); Hemoglobin 11.7 gm/dL (11.6-15.3); Lymph # (Auto) 1.8 th/mm3 (1.0-4.8); Lymph % (Auto) 26.2 % (9.0-44.0); Mean Corpuscular HGB Conc 34.4 % (32.0-36.0); Mean Corpuscular Volume 90.1 fL (80.0-100.0); Mono # (Auto) 0.5 th/mm3 (0.0-0.9); Neut # (Auto) 4.2 th/mm3 (1.8-7.7); Neut % (Auto) 63.1 % (16.0-70.0); Platelet Count 282 th/mm3 (150-450); Red Blood Count 3.77 mil/mm3 (4.00-5.30); Red Cell Distribution Width 12.7 % (11.6-17.2); White Blood Count 6.7 th/mm3 (4.0-11.0)
[2018-06-26 08:19] LABS: Calcium 8.9 mg/dL (8.5-10.1); Carbon Dioxide 28.9 meq/L (21.0-32.0); Potassium 4.3 meq/L (3.5-5.1)
[2018-06-26] MEDS: Linezolid 600 MG Tablet PO SCH ×2 (08:25→20:24)
[2018-06-26] MEDS: Docusate Sodium 100 MG Capsule PO SCH ×2 (08:25→20:25)
[2018-06-26] MEDS: Pantoprazole Sodium 20 MG DR Tablet PO SCH (08:25)
--- NOTE | 2018-06-26 11:21 | P.PNGS ---
Subjective Interval history: Doing well today. Some pain at wound site. Physical Exam Vital signs: Vital Signs 06/25/18 11:22 06/25/18 11:45 06/25/18 20:00 Temperature 97.2 F L 97.8 F Pulse Rate 66 78 Respiratory Rate 20 20 Blood Pressure 101/55 L 88/52 L Pulse Oximetry 99 100 96 06/26/18 00:00 06/26/18 02:34 06/26/18 07:52 Temperature 99.1 F 99.4 F 97.4 F L Pulse Rate 64 76 82 Respiratory Rate 20 20 Blood Pressure 89/49 L 112/61 98/53 L Pulse Oximetry 94 L 96 Intake & Output 06/25/18 06/26/18 06/26/18 18:59 06:59 18:59 Intake Total 2250 / 2250 1300 / 1300 Output Total Balance 2240 / 2240 1300 / 1300 Weight 101.7 kg Intake: IV 2050 / 2050 1300 / 1300 LR 1000 mL Inj 1,000 ML @ 125 1000 / 1000 1000 / 1000 mls/hr IV.CONT .Q8H [facility] Rx#: [id number] Cleocin 600 mg/NS Premix 600 mg 50 / 50 100 / 100 In 50 ml @ 100 mls/hr IV.SIG Q8H [facility] Rx#:[id number] Gentamicin/NS 80 mg Premix 100 200 / 200 ML @ 200 mls/hr IV.SIG Q8H [facility] Rx#:[id number] LR 1000 mL Inj 1,000 ML @ 125 1000 / 1000 mls/hr IV.SIG .Q8H [facility] Rx#: [id number] Anesthesia Amount 200 / 200 Output: Estimated Blood Loss Other: # Voids 3 Narrative: Abd: erythema much improved; vac in place with good seal Results - Labs 06/26/18 07:29 06/26/18 07:29 Laboratory Results - last 24 hr 06/26/18 06/26/18 07:29 07:29 WBC 6.7 RBC 3.77 L Hgb 11.7 Hct 33.9 L MCV 90.1 MCH 31.0 MCHC 34.4 RDW 12.7 Plt Count 282 MPV 8.0 Neut % (Auto) 63.1 Lymph % (Auto) 26.2 [place] % (Auto) 8.0 Eos % (Auto) 2.4 Baso % (Auto) 0.3 Neut # (Auto) 4.2 Lymph # (Auto) 1.8 [place] # (Auto) 0.5 Eos # (Auto) 0.2 Baso # (Auto) 0.0 WBC Differential . Differential Comment Auto diff final Sodium 139 Potassium 4.3 Chloride 103 Carbon Dioxide 28.9 Anion Gap 7 BUN 9 Creatinine 0.96 Estimated GFR 62 L Random Glucose 104 Calcium 8.9 Assessment and Plan - Assessment (1) Postoperative wound infection Code(s): T81.49XA - Infection following a procedure, other surgical site, initial encounter Status: Acute - Plan 47-year-old female with postoperative wound infection after laparotomy with ANA/ BSO and omentectomy on 05/30/2018. POD 1 s/p washout and vac placement. Cellulitis much better. Plan dc home tomorrow with home wound vac. D/w case management. Will transition to PO antibiotics prior to dc.
[2018-06-26] MEDS ORDERED: Pharmacy Ordered Lab Info OTHER ONE (15:45)
[2018-06-27] MEDS: oxyCODONE/Acetaminophen 10/325 Tablet PO PRN ×4 (00:31→13:24)
[2018-06-27] MEDS: Gentamicin/NS 80 mg Premix 100 ML IV.SIG SCH ×3 (00:32→15:52)
[2018-06-27 08:32] VITALS: PULSE 72; RESP 20
[2018-06-27] MEDS: Docusate Sodium 100 MG Capsule PO SCH (09:10)
[2018-06-27] MEDS: Pantoprazole Sodium 20 MG DR Tablet PO SCH (09:10)
[2018-06-27] MEDS: Linezolid 600 MG Tablet PO SCH (09:10)
[2018-06-27] MEDS ORDERED: HYDROmorphone PF Inj 1 MG/ML Ampul IV.PUSH PRN (09:54)
--- NOTE | 2018-06-27 10:01 | MD ---
cc: Gage Deal MD DATE OF DISCHARGE: 06/27/2018 ADMITTING DIAGNOSIS: Postoperative wound infection. DISCHARGE DIAGNOSES: Postoperative wound infection. PROCEDURE: Incision and drainage of wound and placement of wound VAC on 06/25/2018. HISTORY OF PRESENT ILLNESS: The patient is a 47-year-old white female, para 2-0-0-2, status post a ANA/BSO, omentectomy on 05/30/2018 for a borderline ovarian tumor. She had done well postop. She called the day of admission reporting erythema and drainage from the wound. Was seen in the office with drainage from the inferior portion of the wound. Serous and purulent with surrounding erythema. She was admitted and placed on IV clindamycin and IV gentamicin awaiting cultures. She was seen in consultation by Dr. Almaguer from general surgery on 06/23/2018 and due to initial improvement was observed. By 06/24/2018, there was not enough improvement to warrant conservative treatment at that point. She was taken to the OR on the morning of 06/25/2018, the wound was opened and drained. The wound VAC was placed and she rapidly improved. She will be discharged home today with home wound care, wound VAC system. Dr. Almaguer will manage and arrange followup. She will continue with NPV, light activity. She will take Bactrim-DS 1 p.o. b.i.d. for 5 days. Levaquin 500 mg p.o. daily for 7 days and Percocet 5, 1 p.o. every 4 hours p.r.n., #30. She will return to see me in one week and Dr. Almaguer will arrange followup with him in about 5 days. She will call if any abnormal symptoms. MD VINNY Owens/jacky/polo , 08:19 AM , 08:25 AM
--- NOTE | 2018-06-27 10:24 | P.PNGS ---
Subjective Interval history: No complaints. Hoping for discharge today. Physical Exam Vital signs: Vital Signs 06/26/18 13:22 06/26/18 16:22 06/26/18 20:00 Temperature 97.9 F 99.5 F 99.3 F Pulse Rate 85 87 86 Respiratory Rate 20 20 16 Blood Pressure 114/56 L 104/54 L 117/54 L Pulse Oximetry 94 L 95 06/27/18 00:00 06/27/18 04:00 06/27/18 08:00 Temperature 98.3 F 98.6 F 98.5 F Pulse Rate 77 76 72 Respiratory Rate 18 18 20 Blood Pressure 119/71 115/55 L 107/53 L Pulse Oximetry 96 95 97 06/27/18 09:52 Temperature Pulse Rate Respiratory Rate 20 Blood Pressure Pulse Oximetry Intake & Output 06/26/18 06/27/18 06/27/18 18:59 06:59 18:59 Intake Total 1250 / 1250 100 / 100 204 / 204 Output Total 300 / 300 Balance 1250 / 1250 -200 / -200 204 / 204 Weight 101.2 kg Intake: IV 1250 / 1250 100 / 100 204 / 204 LR 1000 mL Inj 1,000 ML @ 125 1000 / 1000 mls/hr IV.CONT .Q8H [facility] Rx#: [id number] Cleocin 600 mg/NS Premix 600 mg 50 / 50 In 50 ml @ 100 mls/hr IV.SIG Q8H [facility] Rx#:[id number] Cleocin Inj 600 MG In NS Inj 104 / 104 100 ML @ 100 mls/hr IV.SIG Q8H [facility] Rx#:[id number] Gentamicin/NS 80 mg Premix 100 200 / 200 100 / 100 100 / 100 ML @ 200 mls/hr IV.SIG Q8H [facility] Rx#:[id number] Output: Urine 300 / 300 Narrative: Vac with good seal Results - Labs 06/26/18 07:29 06/26/18 07:29 Laboratory Results - last 24 hr 06/26/18 06/27/18 23:30 04:55 Gentamicin Peak 1.6 L Gentamicin Trough 0.8 Assessment and Plan - Assessment (1) Postoperative wound infection Code(s): T81.49XA - Infection following a procedure, other surgical site, initial encounter Status: Acute - Plan 47-year-old female with postoperative wound infection after laparotomy with ANA/ BSO and omentectomy on 05/30/2018. POD 2 s/p washout and vac placement. Doing well. Case management trying to set up home vac. Will need vac removed here with dressings placed and new vac placed at home. D/w Dr. Deal- will be going home on levaquin and bactrim. Will see me Monday if office for vac change.
[2018-06-27 14:58] VITALS: BP 101/60; TEMP 97.8; O2SAT 96
== END 2018-06-27 17:32 | disposition home or self-care (01) ==
LOC: H1EA 14:56 → N05 17:47
PROVIDERS: ADMIT Obstetrics & Gynecology; ATTEND Obstetrics & Gynecology